=== PATIENT | female | born 1970 | race Caucasian/White ===

== ENCOUNTER 2017-10-09 15:48 | Emergency (ER) | payer MEDICAID ==
[~2017-10-09] VITALS: Ht 154.9 cm; Wt 60.3 kg
[~2017-10-09 15:48] MED LIST: ALBU8.5H8 IH; CHLO25CA10 PO; ESCI10TA PO; FERR325T32 PO; PANT-47 PO; PROP10TA10 PO
[2017-10-09] MEDS ORDERED: ipratropium/albuterol 3ml nebule NEB ONE (16:15)
[2017-10-09] MEDS ORDERED: predniSONE 20 mg tablet PO ONE (16:15)
[2017-10-09] MEDS ORDERED: PRED20TA PO (16:46)
[2017-10-09] MEDS ORDERED: ALBU6.7H INH (16:46)
[2017-10-09] MEDS ORDERED: AMOX-419 PO (16:46)
[2017-10-09] MEDS ORDERED: GUAI120015 PO (16:46)
[2017-10-09 16:56] VITALS: BP 130/89
== END 2017-10-09 17:14 | disposition home or self-care (01) ==
LOC: ER 15:49
DX: J20.9 Acute bronchitis, unspecified (principal); I10 Essential (primary) hypertension; Z79.899 Other long term (current) drug therapy; Z87.891 Personal history of nicotine dependence
CPT/HCPCS: 71046; 94640; 94760; 99284; J7512

== ENCOUNTER 2017-10-23 19:53 | Emergency (ER) | payer MEDICAID ==
[~2017-10-23] VITALS: Ht 154.9 cm; Wt 57.4 kg
[~2017-10-23 19:53] MED LIST changes: +ALBU6.7H INH; +GUAI120015 PO
[2017-10-23] MEDS ORDERED: LORazepam 2 mg/ml vial IV ONE (21:35)
[2017-10-23] MEDS ORDERED: normal saline 1000ML IV soln IVB ONE (21:35)
[2017-10-23 21:51] LABS: BASOPHILS # (AUTO) 0.1 X10'3 (0-0.2); BASOPHILS % (AUTO) 0.6 % (0-1); EOSINOPHILS # (AUTO) 0.2 X10'3 (0-0.9); EOSINOPHILS % (AUTO) 2.1 % (0-6); HEMATOCRIT 35.5 % (35.0-45.0); HEMOGLOBIN 11.9 g/dl (12.0-16.0); LYMPHOCYTES # (AUTO) 2.7 X10'3 (1.1-4.8); LYMPHOCYTES % (AUTO) 28.6 % (21-51); MEAN CORPUSCULAR HEMOGLOBIN 29.1 PG (27.0-31.0); MEAN CORPUSCULAR HGB CONC 33.5 % (33.0-36.5); MEAN CORPUSCULAR VOLUME 86.7 FL (78-98); MEAN PLATELET VOLUME 9.2 FL (7.4-10.4); MONOCYTES # (AUTO) 0.7 X10'3 (0-0.9); NEUTROPHILS # (AUTO) 5.6 X10'3 (1.8-7.7); NEUTROPHILS % (AUTO) 60.7 % (42-75); PLATELET COUNT 222 X10'3 (140-440); RED BLOOD COUNT 4.09 X10'6 (4.20-5.60); RED CELL DISTRIBUTION WIDTH 18.1 % (11.5-14.5); WHITE BLOOD COUNT 9.3 X10'3 (4.5-11.0)
[2017-10-23 22:04] LABS: ALANINE AMINOTRANSFERASE 63 U/L (12-78); ALBUMIN 3.2 G/DL (3.4-5.0); ALBUMIN/GLOBULIN RATIO 0.7 (1.1-1.5); ALKALINE PHOSPHATASE 145 IU/L (46-116); ANION GAP 10 (8-16); ASPARTATE AMINO TRANSFERASE 80 U/L (10-37); BILIRUBIN,TOTAL 0.3 MG/DL (0.1-1.0); BLOOD UREA NITROGEN 4 MG/DL (7-18); BUN/CREATININE RATIO 5.8 (6.6-38.0); CHLORIDE 102 MMOL/L (99-107); CREATININE 0.69 MG/DL (0.40-0.90); GLUCOSE 101 MG/DL (70-104); POTASSIUM 3.3 MMOL/L (3.5-5.1); SODIUM 141 MMOL/L (135-145); TOTAL CARBON DIOXIDE 28.9 MMOL/L (24-32); TOTAL PROTEIN 7.6 G/DL (6.4-8.2); eGFR > 90 ML/MIN
[2017-10-23] MEDS ORDERED: albuterol 2.5 MG/3 ML nebule NEB ONE (22:20)
[2017-10-23 22:39] VITALS: BP 114/82
== END 2017-10-24 01:14 | disposition home or self-care (01) ==
LOC: ER 19:53
DX: R25.9 Unspecified abnormal involuntary movements (principal); T42.8X5A Adverse effect of antiparkinsonism drugs and other central muscle-tone depressants, initial encounter; F32.9 Major depressive disorder, single episode, unspecified; I10 Essential (primary) hypertension; Y92.89 Other specified places as the place of occurrence of the external cause; Z86.2 Personal history of diseases of the blood and blood-forming organs and certain disorders involving the immune mechanism; Z88.8 Allergy status to other drugs, medicaments and biological substances; R05 Cough
CPT/HCPCS: 36415; 71045; 80053; 85025; 94640; 94760; 96374; 99285; J2060; J7030

== ENCOUNTER 2017-11-14 15:43 | Emergency (ER) | payer MEDICAID ==
[~2017-11-14] VITALS: Ht 154.9 cm; Wt 59.0 kg
[2017-11-14] MEDS ORDERED: LORA1TAB PO (16:24)
[2017-11-14 16:34] VITALS: BP 117/72
== END 2017-11-14 16:37 | disposition home or self-care (01) ==
LOC: ER 15:44
DX: F10.10 Alcohol abuse, uncomplicated (principal); I10 Essential (primary) hypertension; G89.29 Other chronic pain; Z79.899 Other long term (current) drug therapy; Z60.2 Problems related to living alone
CPT/HCPCS: 99283

== ENCOUNTER 2018-01-04 14:59 | Emergency (ER) | payer MEDICAID ==
[~2018-01-04] VITALS: Ht 154.9 cm; Wt 60.1 kg
[2018-01-04 16:42] LABS: BASOPHILS # (AUTO) 0.1 X10'3 (0-0.2); BASOPHILS % (AUTO) 0.4 % (0-1); EOSINOPHILS # (AUTO) 0.2 X10'3 (0-0.9); EOSINOPHILS % (AUTO) 1.7 % (0-6); HEMATOCRIT 39.7 % (35.0-45.0); HEMOGLOBIN 12.8 g/dl (12.0-16.0); LYMPHOCYTES % (AUTO) 14.8 % (21-51); MEAN CORPUSCULAR HEMOGLOBIN 26.7 PG (27.0-31.0); MEAN CORPUSCULAR HGB CONC 32.1 % (33.0-36.5); MEAN PLATELET VOLUME 10.7 FL (7.4-10.4); MONOCYTES # (AUTO) 0.7 X10'3 (0-0.9); MONOCYTES % (AUTO) 5.3 % (2-12); NEUTROPHILS # (AUTO) 10.6 X10'3 (1.8-7.7); NEUTROPHILS % (AUTO) 77.8 % (42-75); PLATELET COUNT 219 X10'3 (140-440); RED BLOOD COUNT 4.78 X10'6 (4.20-5.60); RED CELL DISTRIBUTION WIDTH 20.8 % (11.5-14.5); WHITE BLOOD COUNT 13.6 X10'3 (4.5-11.0)
[2018-01-04 16:54] LABS: LARGE PLATELETS FEW; PLATELET ESTIMATE NORMAL
[2018-01-04 16:59] LABS: ALANINE AMINOTRANSFERASE 44 U/L (12-78); ALBUMIN 3.5 G/DL (3.4-5.0); ALBUMIN/GLOBULIN RATIO 0.7 (1.1-1.5); ALKALINE PHOSPHATASE 112 IU/L (46-116); ANION GAP 11 (8-16); ASPARTATE AMINO TRANSFERASE 37 U/L (10-37); BILIRUBIN,TOTAL 0.3 MG/DL (0.1-1.0); BLOOD UREA NITROGEN 6 MG/DL (7-18); BUN/CREATININE RATIO 7.1 (6.6-38.0); CHLORIDE 101 MMOL/L (99-107); CREATININE 0.85 MG/DL (0.40-0.90); GLUCOSE 82 MG/DL (70-104); POTASSIUM 3.4 MMOL/L (3.5-5.1); SODIUM 138 MMOL/L (135-145); TOTAL CARBON DIOXIDE 26.3 MMOL/L (24-32); TOTAL PROTEIN 8.3 G/DL (6.4-8.2); eGFR 72 ML/MIN
[2018-01-04 17:02] VITALS: BP 117/82
[2018-01-04] MEDS ORDERED: ketorolac trometh inj. 60 MG/2 ML VIAL IM ONE (17:10)
[2018-01-04] MEDS ORDERED: DICL50TA8 PO (17:11)
== END 2018-01-04 17:33 | disposition home or self-care (01) ==
LOC: ER 15:00
DX: M94.0 Chondrocostal junction syndrome [Tietze] (principal); I10 Essential (primary) hypertension; G89.29 Other chronic pain; M54.9 Dorsalgia, unspecified; F10.10 Alcohol abuse, uncomplicated
CPT/HCPCS: 36415; 71045; 80053; 84484; 85025; 93005; 96372; 99285; J1885

== ENCOUNTER 2018-03-26 19:57 | Emergency (ER) | payer MEDICAID ==
[~2018-03-26] VITALS: Ht 154.9 cm; Wt 62.0 kg
[~2018-03-26 19:57] MED LIST changes: +DICL50TA8 PO
[2018-03-26 20:49] LABS: BASOPHILS # (AUTO) 0.1 X10'3 (0-0.2); BASOPHILS % (AUTO) 1.4 % (0-1); EOSINOPHILS # (AUTO) 0.1 X10'3 (0-0.9); EOSINOPHILS % (AUTO) 1.6 % (0-6); HEMATOCRIT 36.7 % (35.0-45.0); HEMOGLOBIN 11.9 g/dl (12.0-16.0); LYMPHOCYTES # (AUTO) 1.6 X10'3 (1.1-4.8); LYMPHOCYTES % (AUTO) 21.8 % (21-51); MEAN CORPUSCULAR HEMOGLOBIN 28.6 PG (27.0-31.0); MEAN CORPUSCULAR HGB CONC 32.4 % (33.0-36.5); MEAN CORPUSCULAR VOLUME 88.4 FL (78-98); MEAN PLATELET VOLUME 10.3 FL (7.4-10.4); MONOCYTES # (AUTO) 0.6 X10'3 (0-0.9); MONOCYTES % (AUTO) 8.2 % (2-12); NEUTROPHILS # (AUTO) 4.9 X10'3 (1.8-7.7); PLATELET COUNT 157 X10'3 (140-440); RED BLOOD COUNT 4.15 X10'6 (4.20-5.60); RED CELL DISTRIBUTION WIDTH 23.2 % (11.5-14.5); WHITE BLOOD COUNT 7.3 X10'3 (4.5-11.0)
[2018-03-26 21:03] LABS: ALANINE AMINOTRANSFERASE 75 U/L (12-78); ALBUMIN 2.7 G/DL (3.4-5.0); ALBUMIN/GLOBULIN RATIO 0.6 (1.1-1.5); ALKALINE PHOSPHATASE 160 IU/L (46-116); ANION GAP 9 (8-16); ASPARTATE AMINO TRANSFERASE 81 U/L (10-37); BILIRUBIN,TOTAL 0.6 MG/DL (0.1-1.0); BLOOD UREA NITROGEN 9 MG/DL (7-18); BUN/CREATININE RATIO 11.4 (6.6-38.0); CHLORIDE 101 MMOL/L (99-107); CREATININE 0.79 MG/DL (0.40-0.90); GLUCOSE 133 MG/DL (70-104); POTASSIUM 3.6 MMOL/L (3.5-5.1); SODIUM 140 MMOL/L (135-145); TOTAL CARBON DIOXIDE 29.7 MMOL/L (24-32); TOTAL PROTEIN 7.5 G/DL (6.4-8.2); eGFR 78 ML/MIN
[2018-03-26] MEDS ORDERED: FLUO20CA39 PO (21:03)
[2018-03-26] MEDS ORDERED: BACL20TA PO (21:03)
[2018-03-26] MEDS ORDERED: GABA600T2 PO (21:03)
[2018-03-26] MEDS ORDERED: FOLI0.4T2 PO (21:03)
[2018-03-26] MEDS ORDERED: OMEP40CA37 PO (21:03)
[2018-03-26] MEDS ORDERED: CALCIUM/VITAMIN D (21:03)
[2018-03-26 21:08] LABS: ANISOCYTOSIS 3+; PLATELET ESTIMATE NORMAL; TARGET CELLS 2+
[2018-03-26 21:14] LABS: ETHANOL < 0.010 GM/DL (0.0-0.010)
[2018-03-26 21:56] LABS: CLARITY,URINE CLEAR (Clear); COLOR,URINE YELLOW (Yellow); GLUCOSE, URINE NEGATIVE (Neg); KETONES,URINE NEGATIVE (Neg); LEUKOCYTE ESTERASE ,URINE NEGATIVE (Neg); NITRITES, URINE NEGATIVE (Neg); OCCULT BLOOD,URINE NEGATIVE (Neg); PH,URINE 7.5 (4.8-8.0); PROTEIN,URINE NEGATIVE (Neg); URINE HCG NEGATIVE (NEG)
[2018-03-26 21:57] LABS: UA COLLECTION TYPE CLN CATCH MIDSTREAM
[2018-03-26 22:06] LABS: URINE AMPHETAMINE SCREEN NEGATIVE (Neg); URINE BARBITUATE SCREEN NEGATIVE (Neg); URINE BENZODIAZEPINES SCREEN POSITIVE (Neg); URINE CANNABINOID SCREEN POSITIVE (Neg); URINE COCAINE SCREEN NEGATIVE (Neg); URINE METHADONE SCREEN NEGATIVE (Neg); URINE OPIATE SCREEN NEGATIVE (Neg); URINE PHENCYCLIDINE SCREEN NEGATIVE (Neg)
[2018-03-27] MEDS ORDERED: nicotine 21mg patch - 24 hr TD ONE (01:25)
[2018-03-27] MEDS ORDERED: gabapentin 400mg capsule PO SCH (08:00)
[2018-03-27] MEDS ORDERED: gabapentin 300mg capsule PO SCH (08:00)
[2018-03-27] MEDS ORDERED: FLUoxetine 20mg capsule PO SCH (08:00)
[2018-03-27] MEDS: folic acid 0.4mg tablet PO SCH (08:29)
[2018-03-27] MEDS: pantoprazole 40mg Tablet.DR PO SCH (08:29)
[2018-03-27] MEDS: clonazePAM 1mg tablet PO SCH ×3 (08:30→20:52)
[2018-03-27] MEDS: baclofen 10mg tablet PO SCH ×3 (08:30→20:52)
[2018-03-27] MEDS: gabapentin 300mg capsule PO SCH ×2 (08:31→15:58)
[2018-03-27] MEDS: FLUoxetine 20mg capsule PO SCH (08:31)
[2018-03-27] MEDS: LORazepam 1 MG tablet PO PRN (15:29)
[2018-03-28] MEDS: gabapentin 300mg capsule PO SCH ×3 (00:46→17:16)
[2018-03-28] MEDS: LORazepam 1 MG tablet PO PRN ×2 (00:48→12:30)
[2018-03-28] MEDS: acetaminophen 325mg tablet PO PRN ×2 (05:39→20:42)
[2018-03-28] MEDS: pantoprazole 40mg Tablet.DR PO SCH (07:52)
[2018-03-28] MEDS: baclofen 10mg tablet PO SCH ×3 (08:06→20:29)
[2018-03-28] MEDS: folic acid 0.4mg tablet PO SCH (08:06)
[2018-03-28] MEDS: FLUoxetine 20mg capsule PO SCH (08:07)
[2018-03-28] MEDS: clonazePAM 1mg tablet PO SCH ×3 (08:07→20:29)
[2018-03-29] MEDS: gabapentin 300mg capsule PO SCH ×3 (00:17→17:40)
[2018-03-29] MEDS: acetaminophen 325mg tablet PO PRN ×2 (03:33→08:57)
[2018-03-29] MEDS: FLUoxetine 20mg capsule PO SCH (07:49)
[2018-03-29] MEDS: clonazePAM 1mg tablet PO SCH ×3 (07:49→20:24)
[2018-03-29] MEDS: folic acid 0.4mg tablet PO SCH (07:49)
[2018-03-29] MEDS: pantoprazole 40mg Tablet.DR PO SCH (07:49)
[2018-03-29] MEDS: baclofen 10mg tablet PO SCH ×3 (07:50→20:28)
[2018-03-29] MEDS: LORazepam 1 MG tablet PO PRN (08:57)
[2018-03-29] MEDS ORDERED: ketorolac trometh inj. 60 MG/2 ML VIAL IM ONE (13:40)
[2018-03-30] MEDS: gabapentin 300mg capsule PO SCH ×2 (01:01→07:55)
[2018-03-30] MEDS ORDERED: naproxen sodium 220mg tablet PO SCH (01:20)
[2018-03-30] MEDS ORDERED: baclofen 10mg tablet PO PRN (01:20)
[2018-03-30] MEDS: folic acid 0.4mg tablet PO SCH (07:48)
[2018-03-30] MEDS: pantoprazole 40mg Tablet.DR PO SCH (07:48)
[2018-03-30] MEDS: clonazePAM 1mg tablet PO SCH (07:49)
[2018-03-30] MEDS: baclofen 10mg tablet PO SCH (07:49)
[2018-03-30] MEDS: FLUoxetine 20mg capsule PO SCH (07:50)
[2018-03-30 12:07] VITALS: BP 140/96
== END 2018-03-30 12:08 | disposition home or self-care (01) ==
LOC: ER 19:57
DX: R45.851 Suicidal ideations (principal); F10.20 Alcohol dependence, uncomplicated; F12.90 Cannabis use, unspecified, uncomplicated; I10 Essential (primary) hypertension; G89.29 Other chronic pain; F32.9 Major depressive disorder, single episode, unspecified; Z60.2 Problems related to living alone; Z79.899 Other long term (current) drug therapy; Y90.0 Blood alcohol level of less than 20 mg/100 ml
CPT/HCPCS: 36415; 80053; 80305; 80320; 81003; 81025; 84443; 85025; 99285

== ENCOUNTER 2018-09-25 19:53 | Emergency (ER) | payer MEDICAID ==
[~2018-09-25] VITALS: Ht 154.9 cm; Wt 60.0 kg
[~2018-09-25 19:53] MED LIST changes: -ALBU6.7H INH; -ALBU8.5H8 IH; +ARIP15TA3 PO; +BACL20TA PO; +BUPR150T8 PO; +CALC-1197 PO; -CHLO25CA10 PO; +CLON-529 PO; -DICL50TA8 PO; -ESCI10TA PO; +FERR-97 PO; -FERR325T32 PO; +FLUO20CA39 PO; +FOLI1TAB16 PO; +FURO20TA4 PO; +GABA600T13 PO; -GUAI120015 PO; +LAMO25TA5 PO; +NICO-687 TD; +OSC500T PO; -PANT-47 PO; +PANT40TA4 PO; +QUET-1 PO; +THIA100T66 PO
[2018-09-25 20:52] LABS: BASOPHILS # (AUTO) 0.1 X10'3 (0-0.2); BASOPHILS % (AUTO) 0.6 % (0-1); EOSINOPHILS # (AUTO) 0.3 X10'3 (0-0.9); HEMATOCRIT 39.2 % (35.0-45.0); HEMOGLOBIN 13.5 g/dl (12.0-16.0); LYMPHOCYTES # (AUTO) 2.7 X10'3 (1.1-4.8); LYMPHOCYTES % (AUTO) 28.9 % (21-51); MEAN CORPUSCULAR HEMOGLOBIN 30.2 PG (27.0-31.0); MEAN CORPUSCULAR HGB CONC 34.4 g/dL (33.0-36.5); MEAN CORPUSCULAR VOLUME 87.7 FL (78-98); MEAN PLATELET VOLUME 9.4 FL (7.4-10.4); MONOCYTES # (AUTO) 0.7 X10'3 (0-0.9); MONOCYTES % (AUTO) 8.1 % (2-12); NEUTROPHILS # (AUTO) 5.5 X10'3 (1.8-7.7); NEUTROPHILS % (AUTO) 59.4 % (42-75); PLATELET COUNT 179 X10'3 (140-440); RED BLOOD COUNT 4.47 X10'6 (4.20-5.60); RED CELL DISTRIBUTION WIDTH 15.5 % (11.5-14.5); WHITE BLOOD COUNT 9.2 X10'3 (4.5-11.0)
[2018-09-25 21:06] LABS: ALANINE AMINOTRANSFERASE 33 U/L (12-78); ALBUMIN 4.2 G/DL (3.4-5.0); ALKALINE PHOSPHATASE 90 IU/L (46-116); ANION GAP 8 (8-16); ASPARTATE AMINO TRANSFERASE 26 U/L (10-37); BILIRUBIN,TOTAL 0.6 MG/DL (0.1-1.0); BLOOD UREA NITROGEN 13 MG/DL (7-18); BUN/CREATININE RATIO 16.9 (6.6-38.0); CALCIUM 9.3 MG/DL (8.5-10.1); CHLORIDE 101 MMOL/L (99-107); CREATININE 0.77 MG/DL (0.40-0.90); GLUCOSE 91 MG/DL (70-104); SODIUM 138 MMOL/L (135-145); TOTAL CARBON DIOXIDE 29.4 MMOL/L (24-32); TOTAL PROTEIN 8.4 G/DL (6.4-8.2); eGFR 81 ML/MIN
[2018-09-25 21:17] LABS: LIPASE 115 U/L (73-393)
[2018-09-25] MEDS ORDERED: furosemide 10 MG/1 ML 10ml inj IV ONE (21:45)
[2018-09-25] MEDS ORDERED: ondansetron/PF 4mg/2ml inj IV ONE (21:45)
[2018-09-25] MEDS ORDERED: POTA10TA19 PO (22:00)
[2018-09-25] MEDS ORDERED: FURO-150 PO (22:00)
[2018-09-25] MEDS ORDERED: ondansetron 4mg rapidly disintigrating tab PO ONE (22:20)
[2018-09-25] MEDS ORDERED: furosemide 20MG tablet PO ONE (22:20)
[2018-09-25 22:31] VITALS: BP 145/94
== END 2018-09-25 22:32 | disposition home or self-care (01) ==
LOC: ER 19:53
DX: K70.31 Alcoholic cirrhosis of liver with ascites (principal); I10 Essential (primary) hypertension; G89.29 Other chronic pain; Z79.899 Other long term (current) drug therapy
CPT/HCPCS: 36415; 80053; 82140; 83690; 85025; 85610; 99283

== ENCOUNTER 2019-04-01 14:01 | Emergency (ER) | payer MEDICAID ==
[~2019-04-01] VITALS: Ht 154.9 cm; Wt 61.4 kg
[~2019-04-01 14:01] MED LIST changes: +CEPH-571 PO; +FURO-150 PO
[2019-04-01] MEDS ORDERED: morphine 2 MG/ML inj. syringe IV PRN (14:15)
[2019-04-01] MEDS ORDERED: ketorolac trometh. 30mg/ml inj. IV ONE (14:15)
[2019-04-01] MEDS ORDERED: diphenhydrAMINE 50 mg/ml inj IV ONE (14:15)
[2019-04-01] MEDS ORDERED: normal saline 1000ML IV soln IVB ONE ×2 (14:15→15:55)
[2019-04-01] MEDS ORDERED: proCHLORperazine 10 MG/2 ml inj IV ONE (14:15)
[2019-04-01] MEDS ORDERED: SUMAtriptan succ. 6 MG/0.5ml vial SQ ONE (14:20)
[2019-04-01] MEDS ORDERED: TRAM50TA2 PO (16:09)
[2019-04-01 16:59] VITALS: BP 135/92
== END 2019-04-01 17:01 | disposition home or self-care (01) ==
LOC: ER 14:02
DX: G43.909 Migraine, unspecified, not intractable, without status migrainosus (principal); M54.2 Cervicalgia; R11.10 Vomiting, unspecified; I10 Essential (primary) hypertension; G89.29 Other chronic pain; F32.9 Major depressive disorder, single episode, unspecified; F17.210 Nicotine dependence, cigarettes, uncomplicated; F10.99 Alcohol use, unspecified with unspecified alcohol-induced disorder; Z86.2 Personal history of diseases of the blood and blood-forming organs and certain disorders involving the immune mechanism; Z60.2 Problems related to living alone; Z79.899 Other long term (current) drug therapy; Y90.9 Presence of alcohol in blood, level not specified
CPT/HCPCS: 96361; 96372; 96374; 96375; 99283; J0780; J1200; J1885; J2270; J7030; J3030

== ENCOUNTER 2019-11-28 12:57 | Emergency (ER) | payer MEDICAID ==
[~2019-11-28] VITALS: Ht 154.9 cm; Wt 54.5 kg
[2019-11-28 13:10] VITALS: BP 133/88
[2019-11-28] MEDS ORDERED: GABA300C PO (14:09)
[2019-11-28] MEDS ORDERED: TRAM50TA2 PO (14:09)
== END 2019-11-28 14:18 | disposition home or self-care (01) ==
LOC: ER 12:58
DX: M79.672 Pain in left foot (principal); M79.671 Pain in right foot; M54.5 Low back pain; M25.551 Pain in right hip; M25.519 Pain in unspecified shoulder; G43.909 Migraine, unspecified, not intractable, without status migrainosus; I10 Essential (primary) hypertension; F32.9 Major depressive disorder, single episode, unspecified; G89.29 Other chronic pain; Z86.2 Personal history of diseases of the blood and blood-forming organs and certain disorders involving the immune mechanism; Z72.89 Other problems related to lifestyle; Z60.2 Problems related to living alone; Z79.2 Long term (current) use of antibiotics; Z79.899 Other long term (current) drug therapy
CPT/HCPCS: 99283

== ENCOUNTER 2020-02-15 16:04 | Emergency (ER) | payer MEDICAID ==
[~2020-02-15] VITALS: Ht 165.1 cm; Wt 70.0 kg
[~2020-02-15 16:04] MED LIST changes: -CALC-1197 PO; +CALC-1215 PO; +GABA300C PO; -PANT40TA4 PO; +PANT40TA54 PO
[2020-02-15 16:14] VITALS: BP 118/86
[2020-02-15 18:30] LABS: BASOPHILS # (AUTO) 0.1 X10'3 (0-0.2); BASOPHILS % (AUTO) 0.7 % (0-1); EOSINOPHILS # (AUTO) 0.1 X10'3 (0-0.9); EOSINOPHILS % (AUTO) 1.4 % (0-6); HEMATOCRIT 42.2 % (35.0-45.0); HEMOGLOBIN 14.2 g/dl (12.0-16.0); LYMPHOCYTES # (AUTO) 2.4 X10'3 (1.1-4.8); LYMPHOCYTES % (AUTO) 30.1 % (21-51); MEAN CORPUSCULAR HEMOGLOBIN 30.9 PG (27.0-31.0); MEAN CORPUSCULAR HGB CONC 33.6 g/dL (33.0-36.5); MEAN CORPUSCULAR VOLUME 91.9 FL (78-98); MEAN PLATELET VOLUME 9.5 FL (7.4-10.4); MONOCYTES # (AUTO) 0.6 X10'3 (0-0.9); MONOCYTES % (AUTO) 7.5 % (2-12); NEUTROPHILS # (AUTO) 4.9 X10'3 (1.8-7.7); NEUTROPHILS % (AUTO) 60.3 % (42-75); PLATELET COUNT 186 X10'3 (140-440); RED BLOOD COUNT 4.59 X10'6 (4.20-5.60); RED CELL DISTRIBUTION WIDTH 13.9 % (11.5-14.5); WHITE BLOOD COUNT 8.1 X10'3 (4.5-11.0)
[2020-02-15 18:37] LABS: CLARITY,URINE CLEAR (Clear); COLOR,URINE YELLOW (Yellow); GLUCOSE, URINE NEGATIVE (Neg); KETONES,URINE NEGATIVE (Neg); LEUKOCYTE ESTERASE ,URINE SMALL (Neg); NITRITES, URINE POSITIVE (Neg); OCCULT BLOOD,URINE NEGATIVE (Neg); PROTEIN,URINE NEGATIVE (Neg); UROBILINOGEN,URINE 0.2 E.U/dL (0.2-1.0)
[2020-02-15 18:40] LABS: ALANINE AMINOTRANSFERASE 26 U/L (12-78); ALBUMIN 4.4 G/DL (3.4-5.0); ALBUMIN/GLOBULIN RATIO 1.1 (1.1-1.5); ALKALINE PHOSPHATASE 74 IU/L (46-116); ANION GAP 4 (8-16); ASPARTATE AMINO TRANSFERASE 15 U/L (10-37); BILIRUBIN,TOTAL 0.4 MG/DL (0.1-1.0); BLOOD UREA NITROGEN 17 MG/DL (7-18); CALCIUM 9.3 MG/DL (8.5-10.1); CHLORIDE 101 MMOL/L (99-107); CREATININE 0.74 MG/DL (0.40-0.90); GLUCOSE 82 MG/DL (70-104); POTASSIUM 4.1 MMOL/L (3.5-5.1); SODIUM 136 MMOL/L (135-145); TOTAL CARBON DIOXIDE 30.8 MMOL/L (24-32); TOTAL PROTEIN 8.3 G/DL (6.4-8.2); eGFR 84 ML/MIN
[2020-02-15 18:55] LABS: UA COLLECTION TYPE NON-SPECIFIED
[2020-02-15 19:01] LABS: MUCUS STRANDS MANY /LPF (Neg); SQUAMOUS EPITHELIAL CELL,UR FEW /LPF (FEW)
[2020-02-15 19:02] LABS: BACTERIA,URINE FEW /HPF (Neg); RBC,URINE 0-2 /HPF (0-2); WBC,URINE 0-4 /HPF (0-4)
[2020-02-15] MEDS ORDERED: metroNIDAZOLE 500mg tablet PO ONE (20:35)
== END 2020-02-15 20:55 | disposition home or self-care (01) ==
LOC: ER 16:05
DX: A59.9 Trichomoniasis, unspecified (principal); N89.8 Other specified noninflammatory disorders of vagina; G43.909 Migraine, unspecified, not intractable, without status migrainosus; I10 Essential (primary) hypertension; G89.29 Other chronic pain; F32.9 Major depressive disorder, single episode, unspecified; Z98.51 Tubal ligation status; Z72.89 Other problems related to lifestyle; Z60.2 Problems related to living alone; Z79.899 Other long term (current) drug therapy
CPT/HCPCS: 36415; 80053; 81001; 85025; 87088; 87210; 99283; Q0112; J3490

== ENCOUNTER 2022-05-31 10:21 | Emergency (ER) | payer MEDICAID ==
[~2022-05-31] VITALS: Ht 154.9 cm; Wt 57.0 kg
[~2022-05-31 10:21] MED LIST changes: -FOLI1TAB16 PO; +FOLI1TAB27 PO
[2022-05-31 10:33] VITALS: BP 131/77
[2022-05-31] MEDS ORDERED: NAPR-56 PO (12:45)
[2022-05-31] MEDS ORDERED: ORPH100T2 PO (12:45)
== END 2022-05-31 13:02 | disposition home or self-care (01) ==
LOC: ER 10:21
DX: M48.56XA Collapsed vertebra, not elsewhere classified, lumbar region, initial encounter for fracture (principal); M54.42 Lumbago with sciatica, left side; M54.41 Lumbago with sciatica, right side; G43.909 Migraine, unspecified, not intractable, without status migrainosus; I10 Essential (primary) hypertension; G89.29 Other chronic pain; F32.9 Major depressive disorder, single episode, unspecified; Z98.51 Tubal ligation status; Z60.2 Problems related to living alone; Z86.2 Personal history of diseases of the blood and blood-forming organs and certain disorders involving the immune mechanism; Z79.899 Other long term (current) drug therapy; W18.39XA Other fall on same level, initial encounter; Y93.89 Activity, other specified; Y92.89 Other specified places as the place of occurrence of the external cause; Y99.8 Other external cause status
CPT/HCPCS: 72131; 99284